=== PATIENT | male | born 1985 | race Caucasian/White ===

== ENCOUNTER 2021-01-08 18:57 | Emergency (ER) | payer OTHER, SELFPAY ==
[2021-01-08 19:39] VITALS: BP 148/95; PULSE 100; RESP 16; TEMP 37.2; O2SAT 98; BMI 33.7
--- NOTE | 2021-01-08 22:11 | ED.LOWEXIN ---
HPI - Extremity Injury (Lower) General Chief Complaint: Extremity Injury, Lower Stated Complaint: left leg pain Source: patient Mode of arrival: wheelchair Limitations: no limitations History of Present Illness HPI Narrative: 35-year-old male presents with left leg injury and pain after trying to do cart wheels with his daughter. Patient stated that when he landed he felt a snap to the medial aspect of his left knee and radiated up to his buttocks. Was unable to bear weight, and has difficult time with flexion and extension of the foot because of upper thigh pain. He does report having 2 beers earlier today and denies hitting his head, losing consciousness, or any other concerning symptoms. MD complaint: leg injury Onset (ago): hour(s) (Within the hour of arrival) Type of Injury: unknown Place: home Severity: moderate Severity scale (1-10): 7 Relieving factors: nothing Exacerbating factors: weight bearing, movement and palpation Context: jumping Associated symptoms: snap/pop sensation and unable to bear weight Other symptoms: none Treatments prior to arrival: cold therapy Related Data Allergies Allergy/AdvReac Type Severity Reaction Status Date / Time No Known Allergies Allergy Unverified 02/19/20 16:01 [No Known Allergies*] Review of Systems Review of Systems: Constitutional: No Fever, No Chills ENT/Mouth: No Ear Pain, No Hoarseness, No sore throat Eyes: No Eye Pain, No Swelling, No Redness, No Foreign Body Cardiovascular: No Chest Pain, No SOB Respiratory: No Cough, No Dyspnea Gastrointestinal: No Nausea, No Vomiting, No Diarrhea, No abdominal Pain Genitourinary: No Dysuria, No Hematuria Musculoskeletal: positive left leg pain, No Myalgias, No Joint Swelling Skin: No Skin lacerations, No rash Neuro: No Weakness, No Numbness, No Paresthesias, No Loss of Consciousness, No Dizziness, No Headache Psych: No Anxiety/Panic, No Depression Heme/Lymph: no easy bruising, no Lymphadenopathy Endocrine: No Polyuria, No Polydipsia Yes all other systems are reviewed and are negative [facility] Past Medical History Attestation statement: The following information was validated with the patient. Source: old records reviewed Social History Social History Advance Directives: No Advance Directives Information Provided: No Physical Exam Vital Signs: Vital Signs: Last Vital Signs Temp 99 F 01/08/21 19:39 Pulse 100 01/08/21 19:39 Resp 16 01/08/21 19:39 BP 148/95 H 01/08/21 19:39 Pulse Ox 98 01/08/21 19:39 Body Mass Index 33.7 Appearance: Alert. Oriented X3. No acute distress. Eyes: Pupils equal, round and reactive to light. ENT: Pharynx normal. Neck: Normal inspection. Neck supple. CVS: Normal heart rate and rhythm. Pulses normal. Respiratory: No respiratory distress. Breath sounds normal. Abdomen: Soft and nontender. Skin: Skin warm and dry. Normal skin color. Normal skin turgor. Extremities: Tenderness to the left MCL, hamstring and gluteus to palpation, has decreased flexion and extension to the foot with increased pain on flexion, full range of motion for inversion and eversion of the foot, decreased flexion and extension of the knee, brisk capillary refill in equal pedal pulses. Neuro: No motor deficit. No sensory deficit. Course Course Course Narrative: Patient presents with a left leg injury after a attempting to do cart wheels with his daughter. Physical presentation consistent with possible tendon rupture or avulsion injury to the MCL or ischial tuberosity. I did discuss this case with Orthopedics, plan is for crutches, nonweightbearing and to follow-up in the office. Patient verbalized understanding of and agrees to plan of care to discharge home. MDM - Extremity Injury (Lower) MDM Narrative Medical decision making narrative: Tendon injury, tendon avulsion Differential Diagnosis Differential diagnosis: Likely acute internal derangement of knee Medical Records Attestation: I reviewed the patient's medical records. Discharge Plan Discharge Clinical Impression: Tendon injury Patient Disposition: Home, Self-Care Instructions: Groin Strain (ED), R.I.C.E. Treatment (ED), Tendon Rupture (ED) Additional Instructions: You were evaluated for injury to lower extremity, your symptoms are consistent with a tendon avulsion or rupture. You must follow-up with orthopedics later this week. Please use crutches, do not bear weight to that extremity until you see Orthopedics. Thank you for choosing this emergency department for evaluation. Please follow-up with primary care physician as needed. Return to the emergency department for any new, concerning, or worsening symptoms. Referrals: Yaz Saba PA-C [Physician [employer] Mitigation Officer] - 2 days (Suspected groin strain or tendon avulsion) Stand Alone Forms: Work/School Release Interventions: ED Discharge Assessment Last Done: 01/08/21 23:53 Discharge Date/Time: 01/08/21 23:57
[2021-01-08] MEDS: Ketorolac Tromethamine 60 MG/2 ML VIAL IM (23:33)
== END 2021-01-08 23:57 | disposition home or self-care (01) ==
PROVIDERS: Emergency Provider Internal Medicine; PCP Internal Medicine
DX: S76.902A Unspecified injury of unspecified muscles, fascia and tendons at thigh level, left thigh, initial encounter (principal); X58.XXXA Exposure to other specified factors, initial encounter; Y93.9 Activity, unspecified; Y92.9 Unspecified place or not applicable; Y99.9 Unspecified external cause status
CPT/HCPCS: 96372; 99283; 99284; J1885